=== PATIENT | male | born 1970 | race Hispanic/Latino ===

== ENCOUNTER 2019-03-14 08:35 | Day surgery (SDC) | payer OTHER ==
[2019-03-14] MEDS ORDERED: NACL 0.9% 500 ML 500 ML IV SCH (10:00)
[2019-03-14] MEDS ORDERED: XYLOCAINE CARDIAC IV ONE (10:23)
[2019-03-14] MEDS ORDERED: ATROPINE 0.1% (CARDIAC) ONE (10:23)
[2019-03-14] MEDS ORDERED: ADRENALIN ONE (10:23)
[2019-03-14] MEDS ORDERED: NITROSTAT SL ONE (10:24)
[2019-03-14] MEDS ORDERED: PHENYLEPHRINE/NS Syringe 1,000 MCG/10 ML IV ONE (10:24)
[2019-03-14 13:05] VITALS: BP 127/93
--- NOTE | 2019-03-15 04:42 | Tilt Table Report ---
REFERRING PHYSICIAN: Dr. Ralph, ID specialist. CLINICAL DATA: A 49-year-old gentleman with a history of HIV positive illness, abnormal EKG, obstructive sleep apnea and venous insufficiency of the left leg, history of near syncopal episodes, underwent a tilt table test as per the protocol. During the tilt table test, 0.4 mg of sublingual nitroglycerin tablet was given at the end of 20 minutes. The patient was tilted to 90 degrees and he was observed for 20 minutes and he received the sublingual nitroglycerin tablet. The patient subsequently developed bradycardia and the heart rate went down to 39 per minute and he became hypotensive and the blood pressure was 76/58 mmHg. He developed severe lightheadedness and subsequently a syncopal episode. He was placed in the supine position and he gradually improved and his final heart rate was 67 with blood pressure 101/66 mmHg. His peak blood pressure was 132/100 mmHg and peak heart rate was 93 per minute. IMPRESSION: This tilt test is positive for vasodepressor syncope. JOB# [id number] [facility]
== END 2019-03-14 13:40 | disposition home or self-care (01) ==
LOC: CATHLABREC 08:35
DX: R55 Syncope and collapse (principal); G47.30 Sleep apnea, unspecified; I87.2 Venous insufficiency (chronic) (peripheral); R94.31 Abnormal electrocardiogram [ECG] [EKG]; I73.9 Peripheral vascular disease, unspecified; E78.00 Pure hypercholesterolemia, unspecified; I10 Essential (primary) hypertension; Z79.899 Other long term (current) drug therapy; Z79.82 Long term (current) use of aspirin; Z90.49 Acquired absence of other specified parts of digestive tract; Z83.3 Family history of diabetes mellitus; Z98.890 Other specified postprocedural states
CPT/HCPCS: 93660; J7040; J0171; J0461; J2001; J2370

== ENCOUNTER 2021-07-01 09:33 | Outpatient (CLI) | payer OTHER | END 2021-07-01 09:34 | disposition home or self-care (01) | LOC: LABHHL 09:33 | PROVIDERS: ATTEND Otolaryngology | DX: J32.0 Chronic maxillary sinusitis (principal) | CPT/HCPCS: 88305; 88311 ==